=== PATIENT | male | born 1970 | race Caucasian/White ===

== ENCOUNTER 2020-07-16 09:36 | Outpatient (REF) | payer OTHER, SELFPAY ==
--- NOTE | 2020-07-16 09:45 | EMG_ITS ---
HISTORY OF PRESENT ILLNESS: This is a 50-year-old man with morbid obesity who has numbness and electrical sensation in both shoulders going up to his neck and face and is being evaluated for shoulder injuries related to work. PHYSICAL EXAMINATION: On examination, he is alert and oriented with normal intellectual functions. His cranial nerves II through XII are normal. Muscle tone and strength are normal in all 4 extremities. Deep tendon reflexes symmetrical, 2+ plantar response are flexor. IMPRESSION: Rule out cervical radiculopathy, rule out nerve injury. NERVE CONDUCTION EMG STUDY: Normal electrodiagnostic study of both upper extremities with no evidence of carpal tunnel syndrome or nerve entrapment. Normal EMG of the C5-6 innervated muscles bilaterally. MD SLICK Mejia/ABUNDIO / [id number]
== END 2020-07-16 09:37 | disposition home or self-care (01) ==
LOC: HO.NEURO 09:36
PROVIDERS: PCP Internal Medicine; Visit Provider Orthopaedic Surgery Hand Surgery
DX: R20.2 Paresthesia of skin (principal); R20.8 Other disturbances of skin sensation
CPT/HCPCS: 95860; 95886; 95913